=== PATIENT | female | born 2000 | race Caucasian/White ===

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

== ENCOUNTER → 2020-03-09 | Outpatient (CLI) | payer OTHER ==
--- NOTE | 2020-03-09 15:19 | XR ---
EXAMINATION TYPE: XR wrist complete RT, XR hand complete RT DATE OF EXAM: 03/09/2020 CLINICAL HISTORY: Pain. TECHNIQUE: Frontal, lateral and oblique images of the right hand and wrist are obtained. Additional fourth right scaphoid view acquired. COMPARISON: None FINDINGS: There is no acute fracture/dislocation evident in the right wrist. The joint spaces in th e right wrist appear within normal limits. The overlying soft tissue appears unremarkable. Images of the right hand show no acute fracture or dislocation. Joint spaces are preserved. Overlying soft tissue is unremarkable. IMPRESSION: Unremarkable studies.
== END | disposition home or self-care (01) ==
LOC: RADXRMAIN 14:55
PROVIDERS: ATTEND Family Medicine
DX: M79.641 Pain in right hand (principal); M25.531 Pain in right wrist; R42 Dizziness and giddiness

== ENCOUNTER → 2020-12-26 | Outpatient (CLI) | payer OTHER ==
[2020-12-26 16:41] LABS: African American GFR (CKD) 152.1 (60.0-200.0); Albumin 4.6 g/dL (3.80-4.90); Albumin/Globulin Ratio 1.7 (1.60-3.17); Anion Gap 6.5 mmol/L (4.00-12.00); BUN/Creat Ratio 21.67 Ratio (12.00-20.00); Calcium 9.7 mg/dL (8.7-10.3); Carbon Dioxide 28.5 mmol/L (21.6-31.8); Chol/HDL Ratio 4.56; Globulin 2.7 g/dL (1.6-3.3); Non-African American GFR(CKD) 131.2 (60.0-200.0); Potassium 4.3 mmol/L (3.5-5.5); Total Bilirubin 0.4 mg/dL (0.3-1.2); Total Protein 7.3 g/dL (6.2-8.2)
[2020-12-26 21:17] LABS: Urine Creatinine 90.3 mg/dL
== END | disposition home or self-care (01) ==
LOC: LABWHC1 09:08
PROVIDERS: ATTEND Internal Medicine Endocrinology, Diabetes & Metabolism
DX: E11.9 Type 2 diabetes mellitus without complications (principal)
CPT/HCPCS: 36415; 80053; 80061; 82043; 82570; 83036; 84443; 86376

== ENCOUNTER → 2021-04-27 | Outpatient (CLI) | payer OTHER ==
[2021-04-27 15:11] VITALS: BP 157/87; PULSE 97; RESP 18; TEMP 98.2; BMI 46.3
[2021-04-27 16:30] LABS: HCT 37.6 % (34.0-46.0); HGB 12.8 gm/dL (11.4-16.0); MCH 30.1 pg (25.0-35.0); MCHC 34.1 g/dL (31.0-37.0); MCV 88.2 fL (80.0-100.0); Mean Platelet Volume 7.4; Platelet Count 271 k/uL (150-450); RBC 4.26 m/uL (3.80-5.40); RDW 13.5 % (11.5-15.5); WBC 12.1 k/uL (3.8-10.6)
--- NOTE | 2021-04-27 16:53 | P.HPBAR ---
Bariatric H&P - History & Physicial H&P Date: 04/27/21 History & Physicial: Visit/CC: initial visit Patient initial contact: Initial weight: Initial weight in pounds: Height: 5 ft 7.75 in Initial BMI: Last weight: Current weight: 137.076 kg Current weight in pounds: 302.20 Current BMI: 46.3 [place] body weight (based on NIH guidelines): 62.936 kg Excess body weight loss: The patient is a 21 year-old F who presents for Bariatric Assessment. 21-year-old female presents to the office complaining of morbid obesity. Patient is interested in surgical weight loss. She says she has been considering for quite some time. BMI 46.3. Patient suffers from fatty liver, pCO2 S, diabetes, GERD. Denies DVT or dysphagia. No tobacco use. No prior EGD. Her mother had a sleeve gastrectomy in the past. She had an aunt who had a gastric bypass in the past. She is not interested in bypass. Review of Systems The patient denies any acute changes in vision or hearing, no dysphagia or odynophagia, no chest pain or shortness of breath, no dysuria or hematuria, no headache, no runny nose, no rectal bleeding or melena, no unexplained weight loss Past Medical History Past Medical History: Asthma, GERD/Reflux, Thyroid Disorder Additional Past Medical History / Comment(s): fatty liver, pre diabetic History of Any Multi-Drug Resistant Organisms: None Reported Past Surgical History: Adenoidectomy, Tonsillectomy Past Anesthesia/Blood Transfusion Reactions: No Reported Reaction Past Psychological History: Anxiety, Depression Smoking Status: Never smoker, Second hand smoke exposure Past Alcohol Use History: Rare Past Drug Use History: None Reported Surgical - Exam Vital Signs Temp Pulse Resp BP 98.2 F 97 18 157/87 04/27/21 15:07 04/27/21 15:07 04/27/21 15:07 04/27/21 15:07 Physical exam: General: Well-developed, well-nourished HEENT: Normocephalic, sclerae nonicteric Abdomen: Nontender, nondistended Extremities: No edema Neuro: Alert and oriented Results - Labs 04/27/21 15:56 Abnormal Lab Results - Last 24 Hours (Table) 04/27/21 Range/Units 15:56 WBC 12.1 H (3.8-10.6) k/uL Bariatric Assessment & Plan (1) Morbid obesity with BMI of 45.0-49.9, adult Narrative/Plan: 21-year-old female with morbid obesity. Risks and benefits of both gastric bypass and sleeve gastrectomy discussed in detail. Patient remains interested in sleeve gastrectomy only at this time. Patient may require 1 supervised weight loss. Will plan upper endoscopy towards the end of that time. Status: Acute Bariatric Checklist Checklist: Plan: Checklist: EGD: 1. Hiatal hernia: 2. H. Pylori: HgbA1c: Vitamin D: Smoking: Never smoker Primary care physician referral: Dr. Reynoso Psychiatry clearance: Cardiology clearance: Sleep study: Diet journal: VTE risk score: VTE risk level: Rehab needs at discharge:
[2021-04-27 23:52] LABS: Hemoglobin A1C 7.1 % (4.0-6.0)
[2021-04-28 03:50] LABS: ALT 47 U/L (8-44); AST 58 U/L (13-35); Albumin/Globulin Ratio 1.62 (1.60-3.17); Alkaline Phosphatase 84 U/L (41-126); Calcium 9.5 mg/dL (8.7-10.3); Carbon Dioxide 25.8 mmol/L (21.6-31.8); Chloride 104 mmol/L (96-109); Folate, Serum >24.0 ng/mL; Globulin 2.9 g/dL (1.6-3.3); Glucose 84 mg/dL (70-110); Iron 28 ug/dL (50-170); Non-African American GFR(CKD) 130.3 (60.0-200.0); Potassium 3.8 mmol/L (3.5-5.5); Sodium 141 mmol/L (135-145); Total Bilirubin 0.2 mg/dL (0.2-1.2); Total Protein 7.6 g/dL (6.2-8.2)
== END ==
LOC: BARWHC3 14:55
PROVIDERS: ATTEND Surgery
DX: E66.01 Morbid (severe) obesity due to excess calories (principal); J45.909 Unspecified asthma, uncomplicated; K21.9 Gastro-esophageal reflux disease without esophagitis; E11.9 Type 2 diabetes mellitus without complications; F41.9 Anxiety disorder, unspecified; F32.9 Major depressive disorder, single episode, unspecified; Z68.42 Body mass index [BMI] 45.0-49.9, adult; Z79.84 Long term (current) use of oral hypoglycemic drugs; Z79.899 Other long term (current) drug therapy; Z88.1 Allergy status to other antibiotic agents; Z91.010 Allergy to peanuts
CPT/HCPCS: 36415; 80053; 80323; 82306; 82607; 82746; 83036; 83540; 84425; 85027; 93005; 99203